=== PATIENT | female | born 1975 | race Caucasian/White ===

== ENCOUNTER 2017-04-19 21:35 | Emergency (ER) | payer OTHER ==
[2017-04-19 21:47] VITALS: BP 134/94; PULSE 104; RESP 16; O2SAT 95
--- NOTE | 2017-04-19 22:16 | EDPHY ---
H & P Stated Complaint: c/o ongoing fungal infx and thrush since jan, several tx's, says no improve Time Seen by Provider: 04/19/17 21:57 HPI/ROS: HPI The patient presents with a rash, concerned that she has bacteremia. The patient has had 3 months of a rash which began as a circular erythematous room region which was yadav crusted on her forehead. This started after getting Gorilla glue on her forehead. She was treated with nuchal person appointment in mid January twice. She had minimal improvement so then took a course of Keflex. She then was left with an erythematous circular lesion on her forehead. On , she says she began vomiting and was diagnosed with oral thrush. She use the nystatin swish and swallow and then last week took a dose of fluconazole and has been using topical nystatin on her forehead. She says the thrush has mostly resolved though she still has a waxy sensation on her tongue. She is concerned about the rash on her forehead and the chapping of the corners of her lips. She also notices several small erythematous patches on her back. [facility]. She has been seen by a mastic man there. She comes to the emergency department tonight because she had a temperature of 100.0 F and was concerned that the infection has spread to her blood. REVIEW OF SYSTEMS Constitutional: No fever, no chills. Eyes: No discharge. ENT: No sore throat. Cardiovascular: No chest pain, no palpitations. Respiratory: No cough, no shortness of breath. Gastrointestinal: No abdominal pain, no vomiting. Genitourinary: No hematuria. Musculoskeletal: No back pain. Skin: No rashes. Neurological: No headache. PMHx: History of depression and attention deficit hyperactivity disorder, status post appendectomy, status post cholecystectomy PHYSICAL General Appearance: Alert, no distress Eyes: Pupils equal and round no pallor or injection ENT, Mouth: Mucous membranes moist, corners of lips are dry and erythematous, posterior pharynx is clear, tongue is diffusely mildly whitish without any patches Respiratory: There are no retractions, lungs are clear to auscultation Cardiovascular: Regular rate and rhythm Gastrointestinal: Abdomen is soft and non-tender, no masses, bowel sounds normal Neurological: A&O, moves all extremities Skin: Warm and dry, forehead with 1.5 cm circular erythematous lesion which is slightly raised, upper back with 3 2-3 mm erythematous macules with excoriation Musculoskeletal: Neck is supple non tender Extremities: symmetrical, full range of motion Psychiatric: Patient is oriented X 3, there is no agitation Source: Patient Exam Limitations: No limitations - Medical/Surgical History Hx Asthma: No Hx Chronic Respiratory Disease: No Hx Diabetes: No Hx Cardiac Disease: No Hx Renal Disease: No Hx Cirrhosis: No Hx Alcoholism: No Hx HIV/AIDS: No Hx Splenectomy or Spleen Trauma: No Other PMH: DEPRESSION, ADD, appencectomy, mary ann - Social History Smoking Status: Current every day smoker Constitutional: Initial Vital Signs Heart Rate 104 H 04/19/17 21:38 Respiratory Rate 16 04/19/17 21:38 Blood Pressure 134/94 H 04/19/17 21:38 O2 Sat (%) 95 04/19/17 21:38 O2 Delivery Mode Room Air Allergies/Adverse Reactions: No Known Allergies Allergy (Verified 04/19/17 21:47) Home Medications: Medication Instructions Recorded Amphet Asp and D/Amphet [Adderall 20 mg PO DAILY PRN 07/04/14 20 mg (*)] Escitalopram Oxalate [Lexapro] 20 mg PO DAILY 07/04/14 Herbals/Supplements -Info Only 1 ea PO DAILY 07/04/14 Ibuprofen [Motrin (*)] 600 mg PO QID #30 tab 07/07/14 Polyethylene Glycol 3350 [Miralax 17 gm PO BID #20 pkt 07/07/14 17 gm (*)] Sennosides/Docusate Sodium 2 tab PO BID #40 tab 07/07/14 [Senokot-S] Fluconazole [Diflucan (*)] 100 mg PO DAILY #7 tab 04/19/17 Medical Decision Making Differential Diagnosis: This is a 41-year-old female who presents as with forehead rash for last 3 weeks , treated with topical and oral antibiotics, subsequently developing oral thrush , now with ongoing lesions on her forehead, back. On exam, well-appearing, normal vital signs, though reported low-grade fever at home to 100.0. Differential diagnosis includes continued impetigo, fungal skin infection such as ringworm, oral thrush. Plan to check CBC. In the emergency department, CBC was performed and was normal, white blood cell count is just slightly elevated which is to be expected in her case. There is no leukopenia. Plan for treatment with fluconazole p. o., 1 week course given that she only had 2 days which may be subtherapeutic dosing for oral thrush. It is unclear if the forehead lesion is fungal verses healing impetigo. I have advised her to continue her current course of treatment. I have advised her to follow up with her primary care doctor in 1 week. - Data Points Laboratory Results: Laboratory Results 04/19/17 22:55 04/19/17 22:55 WBC 10.04 10^3/uL H 10^3/uL (3.80-9.50) RBC 3.96 10^6/uL L 10^6/uL (4.18-5.33) Hgb 12.8 g/dL g/dL (12.6-16.3) Hct 36.9 % L % (38.0-47.0) MCV 93.2 fL fL (81.5-99.8) MCH 32.3 pg pg (27.9-34.1) MCHC 34.7 g/dL g/dL (32.4-36.7) RDW 14.3 % % (11.5-15.2) Plt Count 379 10^3/uL 10^3/uL (150-400) MPV 8.6 fL L fL (8.7-11.7) Neut % (Auto) 69.3 % % (39.3-74.2) Lymph % (Auto) 22.8 % % (15.0-45.0) [place] % (Auto) 6.8 % % (4.5-13.0) Eos % (Auto) 0.3 % L % (0.6-7.6) Baso % (Auto) 0.5 % % (0.3-1.7) Nucleat RBC Rel Count 0.0 % % (0.0-0.2) Absolute Neuts (auto) 6.96 10^3/uL H 10^3/uL (1.70-6.50) Absolute Lymphs (auto) 2.29 10^3/uL 10^3/uL (1.00-3.00) Absolute Monos (auto) 0.68 10^3/uL 10^3/uL (0.30-0.80) Absolute Eos (auto) 0.03 10^3/uL 10^3/uL (0.03-0.40) Absolute Basos (auto) 0.05 10^3/uL 10^3/uL (0.02-0.10) Absolute Nucleated RBC 0.00 10^3/uL 10^3/uL (0-0.01) Immature Gran % 0.3 % % (0.0-1.1) Immature Gran # 0.03 10^3/uL 10^3/uL (0.00-0.10) Departure - Departure Disposition: Home, Routine, Self-Care Clinical Impression: Thrush, Facial rash Condition: Good Instructions: Impetigo (ED), Oral Candidiasis (ED) Additional Instructions: [facility] with the [facility] in the next few days. Referrals: Myra Abebe PA [Primary Care Provider] - As per Instructions Prescriptions: Fluconazole [Diflucan (*)] 100 mg PO DAILY #7 tab
[2017-04-19 23:03] LABS: PLATELET COUNT 379 10^3/uL (150-400)
== END 2017-04-19 23:33 | disposition home or self-care (01) ==
DX: B37.0 Candidal stomatitis (principal); R21 Rash and other nonspecific skin eruption; F17.200 Nicotine dependence, unspecified, uncomplicated